=== PATIENT | female | born 1955 | race Caucasian/White ===

== ENCOUNTER → 2016-06-19 | Outpatient (CLI) | payer OTHER ==
[~2016-06-19] MED LIST: LOTREL 10/20 MG1 CAP PO; NEXIUM PO; ZYRTEC-D T1 TAB.SR1 PO; [UNRECOGNIZED DRUG - OTHER] PO
--- NOTE | ~2016-06-19 | MY11 ---
[facility] A Service of [facility] / [facility] RADIOLOGY TEXT RESULTS PATIENT: DEV GONZALES LOCATION: [facility] : 55 UNIT #: [id number] AGE: [address]: Romeo Berry MD SEX: F ORDER DR: [id number] [address] [address] [id number] O MR#: [id number] Acc #: [id number] NAME: DEV GONZALES : 1955 SEX: F STUDY DATE/TIME: 06/19/2016 9:31 UNIT: [facility] ROOM: STUDY DESCRIPTION: MY Mammogram Screening Dig Peter Attending Physician: Romeo Berry M.D. Referring Physician: Romeo Berry M.D. Ordering Physician: Romeo Berry M.D. Primary Care Physician: Romeo Berry M.D. MEDICAL IMAGING REPORT This report is preliminary unless electronic signature is present. EXAM Digital screening mammogram, 06/19/2016 HISTORY 60-year-old woman positive family history, maternal aunt. Annual screening. COMPARISON Mammograms date to 04/18/2005 with most recent 06/11/2015. FINDINGS Digital imaging of each breast was completed utilizing screening protocol. Review includes FDA-approved CAD device. Breast parenchyma is predominantly fatty replaced and mildly heterogeneous. Faint parenchymal opacities in each breast remain stable. I see no interval occurring breast mass. There are no suspicious microcalcifications and no architectural deformity. IMPRESSION Negative mammogram. Annual screening recommended. Patients over the age of 40 are entered into a reminder system with target due date for the next mammogram. A result letter will also be sent to the patient. BIRADS: 1 Negative Dictated by... Berto Gonzales M.D. THIS IS AN ELECTRONICALLY VERIFIED REPORT Berto Gonzales M.D. at 06/19/2016 12:28 PM JEFF/dorothy [facility] A Service of [facility] / [facility] RADIOLOGY TEXT RESULTS PATIENT: DEV GONZALES [facility] [id number] : 55 UNIT #: [id number] AGE: [address]: Romeo Berry MD SEX: F ORDER DR: TD: 06/19/2016 11:07 JOB #: [id number] MEDICAL IMAGING REPORT Page 1 of 1
== END | disposition home or self-care (01) ==
LOC: SMAM 08:34
DX: Z12.31 Encounter for screening mammogram for malignant neoplasm of breast (principal); Z80.3 Family history of malignant neoplasm of breast
CPT/HCPCS: G0202